=== PATIENT | male | born 1960 | race Caucasian/White ===

== ENCOUNTER → 2019-03-20 | Outpatient (REF) | payer MEDICARE, BC | LOC: M LAB REF 11:44 | PROVIDERS: ATTEND Internal Medicine Endocrinology, Diabetes & Metabolism | DX: E04.2 Nontoxic multinodular goiter (principal) ==

== ENCOUNTER → 2019-08-07 | Outpatient (REF) | payer MEDICARE, BC ==
[2019-08-07 14:03] LABS: APPEARANCE, URINE CLEAR (CLEAR); BACTERIA, URINE AUTO NEGATIVE (NEGATIVE); BILIRUBIN, URINE AUTO NEGATIVE (NEGATIVE); BLOOD, URINE BLOOD NEGATIVE (NEGATIVE); COLOR, URINE STRAW (YELLOW); GLUCOSE, URINE (UA) AUTO NEGATIVE (NEGATIVE); KETONE, URINE AUTO NEGATIVE (NEGATIVE); LEUKOCYTE ESTERASE, URINE AUTO NEGATIVE (NEGATIVE); NITRITE, URINE AUTO NEGATIVE (NEGATIVE); PROTEIN, URINE AUTO NEGATIVE (NEGATIVE); RBC, URINE AUTO 0 /HPF (0-3); SPECIFIC GRAVITY URINE AUTO 1.004 (1.002-1.035); SQUAMOUS EPITHELIAL CELL UR AU 0 /HPF (0-6); UROBILINOGEN, URINE AUTO 0.2 mg/dL (0.0-2.0); WBC, URINE AUTO 0 /HPF (0-3)
== END ==
LOC: M SMT 13:24
PROVIDERS: ATTEND Urology
DX: N41.1 Chronic prostatitis (principal)
CPT/HCPCS: 81001; 87086; G0463

== ENCOUNTER → 2019-08-26 | Outpatient (CLI) | payer MEDICARE, BC ==
[~2019-08-26] MED LIST: ISOVUE-370 76% 100ML VIAL (Q9967) As Ordered ONE
[2019-08-26 13:21] LABS: HEMATOCRIT 44.9 % (42.0-52.0); MEAN CORPUSCULAR HEMOGLOBIN 30.2 pg (27.0-33.0); MEAN CORPUSCULAR HGB CONC 33.4 g/dl (32.0-36.5); MEAN CORPUSCULAR VOLUME 90.3 fl (80.0-96.0); PLATELET COUNT, AUTOMATED 214 10^3/uL (150-450); RED BLOOD COUNT 4.97 10^6/uL (4.30-6.10); WHITE BLOOD COUNT 7.3 10^3/uL (4.0-10.0)
[2019-08-26 13:47] LABS: BLOOD UREA NITROGEN 19 MG/DL (7-18); CALCIUM LEVEL 9.4 MG/DL (8.8-10.2); CARBON DIOXIDE LEVEL 31 MEQ/L (21-32); CHLORIDE LEVEL 106 MEQ/L (98-107); CREATININE FOR GFR 1.07 MG/DL (0.70-1.30); GLOMERULAR FILTRATION RATE > 60.0 (>49); GLUCOSE, FASTING 88 MG/DL (70-100); POTASSIUM SERUM 4.3 MEQ/L (3.5-5.1); SODIUM LEVEL 140 MEQ/L (136-145)
--- NOTE | 2019-08-26 15:43 | REP ---
REASON: Chronic prostatitis. COMPARISON: None. CONTRAST: 100 mL Isovue 370. The lung bases are clear. The precontrast enhanced portion of the examination shows 4 mm sized nonobstructing right nephroliths. Hepatic and splenic densities are within normal limits. There are no choleliths. There are no urinary bladder calcifications. Contrast enhanced portion of the examination shows the liver, gallbladder, spleen, pancreas, adrenal glands, and left kidney to be within normal limits. Aside from the tiny right nephroliths there are two nonenhancing low density foci in the superior pole of the right kidney the largest of which measures 1.2 cm and both consistent with simple cysts. The abdominal aorta and paraaortic regions are within normal limits. The bowel loops and the mesenteries are within normal limits. There is no free fluid or free air. CT PELVIS: The bowel loops and their mesenteries are within normal limits. There is prostatomegaly. There is on pelvic adenopathy. There is no free fluid or free air. Delayed imaging through the urinary bladder shows prostatic impression on the posterior urinary bladder wall due to enlargement. There are no intraluminal filling defects. MIP reformatted 3D images were obtained as part of a CT urogram. Those images show no evidence of an intraluminal filling defect, however, the distal portion of each ureter was incompletely opacified likely secondary to normal ureteral peristaltic activity. IMPRESSION: 1. Simple right renal cyst. 2. No renal collection system abnormality. 3. There is prostatomegaly as described above. 4. Other findings as described above. Electronically Signed by Johny Rebolledo DO 08/26/2019 03:46 P
[2019-08-28 00:09] LABS: PSA % FREE 19.4 % (.); PSA FREE 1.3 ng/mL; PSA TOTAL 6.7 ng/mL (0.0-4.0)
== END ==
LOC: M RAD 12:46
PROVIDERS: ATTEND Urology
DX: N41.1 Chronic prostatitis (principal); R31.0 Gross hematuria; N35.911 Unspecified urethral stricture, male, meatal; N40.2 Nodular prostate without lower urinary tract symptoms; N20.0 Calculus of kidney; R97.20 Elevated prostate specific antigen [PSA]
CPT/HCPCS: 36415; 74178; 80048; 84154; 85027; Q9967

== ENCOUNTER → 2019-09-02 | Outpatient (CLI) | payer MEDICARE, BC ==
[~2019-09-02] MED LIST changes: +ATOR1TAB21 PO; +CIPR500T3 PO; +FLOM0.4C39 PO; -ISOVUE-370 76% 100ML VIAL (Q9967) As Ordered ONE; +LEVO25TA5 PO
[2019-09-02 15:05] LABS: HEMATOCRIT 42.5 % (42.0-52.0); HEMOGLOBIN 14.1 g/dl (13.5-17.5); MEAN CORPUSCULAR HEMOGLOBIN 29.9 pg (27.0-33.0); MEAN CORPUSCULAR HGB CONC 33.2 g/dl (32.0-36.5); PLATELET COUNT, AUTOMATED 192 10^3/uL (150-450); RED BLOOD COUNT 4.72 10^6/uL (4.30-6.10)
[2019-09-02 15:25] LABS: BLOOD UREA NITROGEN 19 MG/DL (7-18); CALCIUM LEVEL 9.1 MG/DL (8.8-10.2); CARBON DIOXIDE LEVEL 28 MEQ/L (21-32); CHLORIDE LEVEL 106 MEQ/L (98-107); CREATININE FOR GFR 1.21 MG/DL (0.70-1.30); GLOMERULAR FILTRATION RATE > 60.0 (>49); GLUCOSE, FASTING 84 MG/DL (70-100); POTASSIUM SERUM 3.9 MEQ/L (3.5-5.1); SODIUM LEVEL 140 MEQ/L (136-145)
== END ==
LOC: M LAB 14:25
PROVIDERS: ATTEND Urology
DX: Z01.818 Encounter for other preprocedural examination (principal); R31.0 Gross hematuria; R97.20 Elevated prostate specific antigen [PSA]
CPT/HCPCS: 36415; 51798; 80048; 85027; 87086; G0463

== ENCOUNTER → 2019-09-02 | Outpatient (REF) | payer MEDICARE, BC | LOC: M SMT 17:15 | PROVIDERS: ATTEND Urology | DX: Z01.818 Encounter for other preprocedural examination (principal); R31.0 Gross hematuria; R97.20 Elevated prostate specific antigen [PSA] ==

== ENCOUNTER → 2019-09-09 | Outpatient (CLI) | payer MEDICARE, BC ==
[~2019-09-09] MED LIST changes: -CIPR500T3 PO
--- NOTE | 2019-09-09 13:09 | REP ---
REASON: Gross hematuria. COMPARISON EXAMINATION: None. There is left hilar fullness compared to the right with slight irregularity. The pleural angles are sharp, and the lung valdes are otherwise clear. The heart is not enlarged. There is a left shoulder prosthesis. IMPRESSION: Left hilar findings, as described above. Etiology uncertain. Possible superimposition of vascular structures; however, since I have no priors for comparison, CT examination of the chest with contrast is in order. Electronically Signed by Johny Rebolledo DO 09/09/2019 01:26 P
== END ==
LOC: M RAD 12:10
PROVIDERS: ATTEND Urology
DX: R31.0 Gross hematuria (principal)

== ENCOUNTER 2019-09-12 06:28 | Day surgery (SDC) | payer MEDICARE, BC ==
[~2019-09-12] VITALS: Ht 182.9 cm; Wt 123.8 kg
[~2019-09-12 06:28] MED LIST changes: +LIDOCAINE 1% MDV 20ML VIAL SQ PRN
[2019-09-12] MEDS ORDERED: LR 1,000 ML IV ONE (06:30)
[2019-09-12] MEDS ORDERED: CIPR500T3 PO (07:33)
[2019-09-12] MEDS ORDERED: fentaNYL 250 MCG/5 ML INJECTION (J3010) As Ordered ONE (08:38)
[2019-09-12] MEDS ORDERED: MIDAZOLAM INJ 2MG/2ML VIAL (J2250 PER 1MG) As Ordered ONE (08:39)
[2019-09-12] MEDS ORDERED: ONDANSETRON 4MG/2ML VIAL As Ordered ONE (08:39)
[2019-09-12] MEDS ORDERED: propofoL 200 MG/20 ML VIAL As Ordered ONE (08:39)
[2019-09-12] MEDS ORDERED: LIDOCAINE 2% 100MG/5ML SDV (FOR ANES.) As Ordered ONE (08:39)
[2019-09-12] MEDS ORDERED: dexameTHASONE 4 MG/ML 1ML VIAL (J1100 PER 1MG) As Ordered ONE (08:39)
[2019-09-12] MEDS ORDERED: ePHEDrine SULFATE 25 MG/5 ML(5MG/ML) SYRINGE As Ordered ONE (09:32)
[2019-09-12] MEDS ORDERED: fentaNYL 100 MCG/2 ML INJECTION (J3010) IV PRN (10:15)
[2019-09-12] MEDS ORDERED: PERCOCET 5MG/325MG TAB PO PRN (10:15)
[2019-09-12] MEDS ORDERED: ONDANSETRON 4MG/2ML VIAL IV PRN (10:15)
[2019-09-12] MEDS ORDERED: ACETAMINOPHEN TAB 650MG DOSE (2X325MG) PO PRN (10:15)
[2019-09-12] MEDS ORDERED: LR 1,000 ML IV SCH (10:15)
[2019-09-12] MEDS ORDERED: METOCLOPRAMIDE INJ 10MG/2ML VIAL (J2765 PER 1) IV PRN (10:15)
--- NOTE | 2019-09-12 10:25 | ROOPDOC ---
[facility] Report Of Operation Report of Operation DATE OF PROCEDURE: 09/12/19 PREPROCEDURE DIAGNOSES: Meatal Stenosis, Gross Hematuria, Elevated Prostate Specific Antigen (PSA), Prostate Nodule. POSTPROCEDURE DIAGNOSES: Meatal Stenosis, Gross Hematuria, Elevated PSA, Prostate Nodule. PROCEDURE: Urethral Meatal Dilation, Cystoscopy, Transrectal Ultrasound-guided Prostate Biopsy. SURGEON: Monet Alcantara MD DRYING OVEN ATTENDANT: None ANESTHESIA: General. OPERATIVE INDICATIONS: This is a 59 year old male with gross hematuria, meatal stenosis, a right prostate nodule, and an elevated PSA of 6.7, here today for t he above procedures. DESCRIPTION OF PROCEDURE: The patient was brought to the operating room and general anesthesia was induced. Prophylactic antibiotics were taken prior to the procedure. He was then placed in the dorsal lithotomy position and prepped and draped in the usual sterile fashion. At this point curved metal sounds were utilized to dilate the urethral meatus to 30 Cymro. Once this was done, a rigid cystoscope was inserted into the urethra and advanced into the bladder. It was thoroughly examined with a 30 degree and 70 degree lens. No bladder tumors or other mucosal lesions were seen. Bilateral ureteral orifices were orthotopic and effluxed clear urine. There were no bladder stones. There was trilobar prostatic hyperplasia with significant occlusion of the bladder outlet. The remainder of the urethra was unremarkable. The patient was then repositioned with his left side down. Subsequently the central supply technician supervisor measured the dimensions of the prostate and the volume was 99mL. Then 12 core biopsies of the prostate were obtained using a disposable biopsy gun, 6 each from the right and 6 from the left, 2 from the base, 2 from the mid zone and 2 from the apex. Once this was done the patient was placed back supine. He was prepped again and then an 18 Cymro Jj catheter was inserted into his bladder using sterile technique. The balloon was inflated with 10mL of sterile water and the catheter was connected to gravity drainage, marking the conclusion of the procedure. The patient was then awakened from anesthesia and transported to the recovery room in stable condition. ESTIMATED BLOOD LOSS: Approximately 15 mL. COMPLICATIONS: None. SPECIMENS: Prostate Biopsies. PLAN: The patient will follow up in urology clinic next week for catheter removal and to discuss prostate biopsy pathology results. MONET ALCANTARA MD Sep 12, 2019 10:25
[2019-09-12 11:40] VITALS: BP 128/75
--- NOTE | 2019-09-12 12:33 | REP ---
TRANSRECTAL PROSTATE ULTRASOUND WITH ULTRASOUND GUIDANCE FOR PROSTATE BIOPSY: Transrectal ultrasound prostate performed. Prostate measures 6.0 x 3.8 x 6.7 cm for a total volume of 99 mL. No peripheral zone nodule is seen. Echotexture is heterogeneous. Ultrasound guidance was provided for Dr. Menon, who performed ultrasound guided biopsy of the prostate. Electronically Signed by Bill Packer MD 09/12/2019 03:07 P
== END 2019-09-12 11:49 | disposition home or self-care (01) ==
LOC: M SDC 06:28
PROVIDERS: ATTEND Urology
DX: C61 Malignant neoplasm of prostate (principal); N35.911 Unspecified urethral stricture, male, meatal; R97.20 Elevated prostate specific antigen [PSA]; R31.0 Gross hematuria; N40.3 Nodular prostate with lower urinary tract symptoms; N41.1 Chronic prostatitis; R73.03 Prediabetes; E78.01 Familial hypercholesterolemia; E66.9 Obesity, unspecified; Z68.37 Body mass index [BMI] 37.0-37.9, adult; G47.30 Sleep apnea, unspecified; E89.0 Postprocedural hypothyroidism; Z79.899 Other long term (current) drug therapy; Z79.2 Long term (current) use of antibiotics; Z88.0 Allergy status to penicillin
CPT/HCPCS: 52281; 55700; 76872; G0416; J1100; J2250; J2405; J3010

== ENCOUNTER → 2019-09-24 | Outpatient (CLI) | payer MEDICARE, BC ==
[~2019-09-24] MED LIST changes: +CIPR500T3 PO; +ISOVUE-370 76% 100ML VIAL As Ordered ONE; -LIDOCAINE 1% MDV 20ML VIAL SQ PRN
--- NOTE | 2019-09-24 11:12 | REP ---
CT CHEST WITH IV CONTRAST: TECHNIQUE: Axial contrast enhanced images from the thoracic inlet to the upper abdomen using 100 mL Isovue-370 intravenous contrast material with multiplanar reformations. There is mild scattered fibrotic change in both lungs. There is a somewhat oval nodular density in the right middle lobe laterally 6 mm in maximum diameter. A few tiny nodular areas of suspected scarring are seen in the right upper lobe, a couple of millimeters in diameter. No nodule is seen in the left lung. There is no evidence of mediastinal, hilar or chest wall lymphadenopathy. There is no pleural or pericardial effusion. The heart is normal in size. There is no thoracic aortic aneurysm or dissection. There is evidence of prior left thyroidectomy. There are degenerative changes of the spine. IMPRESSION: Oval 6 mm nodular opacity right middle lobe laterally. Since there are no prior studies for comparison, this is categorized as a category 4A lesion with followup CT recommended in 3 months. No evidence of adenopathy. Electronically Signed by Bill Packer MD 09/24/2019 12:34 P
== END ==
LOC: M RAD 09:24
PROVIDERS: ATTEND Urology
DX: R91.8 Other nonspecific abnormal finding of lung field (principal); R93.89 Abnormal findings on diagnostic imaging of other specified body structures
CPT/HCPCS: 71260; Q9967

== ENCOUNTER → 2019-09-29 | Outpatient (CLI) | payer MEDICARE, BC ==
[~2019-09-29] MED LIST changes: -ISOVUE-370 76% 100ML VIAL As Ordered ONE
== END ==
LOC: M LAB 12:27
PROVIDERS: ATTEND Registered Nurse
DX: E89.0 Postprocedural hypothyroidism (principal)

== ENCOUNTER → 2019-09-29 | Outpatient (CLI) | payer MEDICARE, BC ==
[2019-09-29 13:03] LABS: HEMOGLOBIN 15.6 g/dl (13.5-17.5); MEAN CORPUSCULAR HEMOGLOBIN 30.9 pg (27.0-33.0); MEAN CORPUSCULAR HGB CONC 33.9 g/dl (32.0-36.5); MEAN CORPUSCULAR VOLUME 91.1 fl (80.0-96.0); PLATELET COUNT, AUTOMATED 217 10^3/uL (150-450); RED BLOOD COUNT 5.05 10^6/uL (4.30-6.10); WHITE BLOOD COUNT 9.5 10^3/uL (4.0-10.0)
[2019-09-29 13:25] LABS: BLOOD UREA NITROGEN 19 MG/DL (7-18); CALCIUM LEVEL 9.7 MG/DL (8.8-10.2); CARBON DIOXIDE LEVEL 29 MEQ/L (21-32); CHLORIDE LEVEL 104 MEQ/L (98-107); CREATININE FOR GFR 1.15 MG/DL (0.70-1.30); GLOMERULAR FILTRATION RATE > 60.0 (>49); GLUCOSE, FASTING 91 MG/DL (70-100); POTASSIUM SERUM 4.1 MEQ/L (3.5-5.1); SODIUM LEVEL 139 MEQ/L (136-145)
[2019-09-29 13:27] LABS: INR 1.05; PROTHROMBIN TIME 13.4 SECONDS (11.8-14.0)
[2019-09-29 13:28] LABS: PARTIAL THROMBOPLASTIN TIME 29.1 SECONDS (25.0-38.4)
== END ==
LOC: M LAB 12:23
PROVIDERS: ATTEND Urology
DX: Z01.818 Encounter for other preprocedural examination (principal); C61 Malignant neoplasm of prostate; N39.0 Urinary tract infection, site not specified; E89.0 Postprocedural hypothyroidism

== ENCOUNTER → 2019-10-06 | Outpatient (CLI) | payer MEDICARE, BC ==
[~2019-10-06] MED LIST changes: +DOCU100C16 PO; +ERYT-52 PO; +MULTCAP PO; +PERCOCET PO
== END ==
LOC: M LABSMTC 09:24
PROVIDERS: ATTEND Anesthesiology
DX: Z01.818 Encounter for other preprocedural examination (principal); Z11.59 Encounter for screening for other viral diseases

== ENCOUNTER 2019-10-08 06:02 | Inpatient (IN) | payer MEDICARE, BC ==
[2019-10-08] VITALS (8 sets, daily range): BP systolic 120–133; BP diastolic 70–75
[~2019-10-08] VITALS: Ht 185.4 cm; Wt 120.7 kg
[~2019-10-08 06:02] MED LIST changes: -DOCU100C16 PO; -ERYT-52 PO; +GENTAMICIN 80 MG in IV 1 EA IV ONE; +HEPARIN SOD (PORCINE) 5000UNITS/ML VIAL (J1644 PER 1000UNITS) SQ ONE; +LR 1,000 ML IV ONE; -MULTCAP PO; -PERCOCET PO; +VANCOMYCIN HCL 1,000 MG, VIAL MATE ADAPTER 1 EACH in D5W 250 ML IV ONE
[2019-10-08] MEDS ORDERED: MULTCAP PO (06:44)
[2019-10-08] MEDS ORDERED: ERYT-52 PO (06:44)
[2019-10-08] MEDS ORDERED: dexameTHASONE 4 MG/ML 1ML VIAL (J1100 PER 1MG) As Ordered ONE (07:00)
[2019-10-08] MEDS ORDERED: fentaNYL 100 MCG/2 ML INJECTION (J3010) As Ordered ONE (07:00)
[2019-10-08] MEDS ORDERED: ONDANSETRON 4MG/2ML VIAL As Ordered ONE (07:00)
[2019-10-08] MEDS ORDERED: KETAMINE HCL 200 MG/20 ML VIAL As Ordered ONE (07:00)
[2019-10-08] MEDS ORDERED: MIDAZOLAM INJ 2MG/2ML VIAL (J2250 PER 1MG) As Ordered ONE (07:00)
[2019-10-08] MEDS ORDERED: LIDOCAINE 2% 100MG/5ML SDV (FOR ANES.) As Ordered ONE (07:01)
[2019-10-08] MEDS ORDERED: ROCURONIUM BROMIDE 50 MG/5 ML VIAL As Ordered ONE ×3 (07:01→10:16)
[2019-10-08] MEDS ORDERED: propofoL 200 MG/20 ML VIAL As Ordered ONE (07:01)
[2019-10-08] MEDS ORDERED: BUPIVACAINE HCL 0.25% 30ML VIAL As Ordered ONE (07:13)
[2019-10-08] MEDS ORDERED: LIDOCAINE 1% SDV 30ML VIAL As Ordered ONE (07:13)
[2019-10-08] MEDS ORDERED: NS 1,000 ML IV SCH (07:39)
[2019-10-08] MEDS ORDERED: MORPHINE 2 MG/ML 1ML VIAL (J2270) IV PRN (07:45)
[2019-10-08] MEDS ORDERED: PERCOCET 5MG/325MG TAB PO PRN ×3 (07:45→13:45)
[2019-10-08] MEDS ORDERED: SUGAMMADEX SODIUM 500 MG/5 ML VIAL (BRIDION) As Ordered ONE (08:06)
[2019-10-08] MEDS ORDERED: ACETAMINOPHEN 1000MG 100ML IV BTL (OFIRMEV) (J0131 PER 10MG) As Ordered ONE (08:06)
[2019-10-08] MEDS ORDERED: HYDROmorphone HCL 2 MG/ML 1ML VIAL (J1170) As Ordered ONE (08:23)
[2019-10-08] MEDS ORDERED: ATORVASTATIN 20 MG TAB PO SCH (09:00)
[2019-10-08] MEDS ORDERED: ePHEDrine SULFATE 25 MG/5 ML(5MG/ML) SYRINGE As Ordered ONE (09:01)
[2019-10-08] MEDS ORDERED: ALBUTEROL 6.7GM INHALER **FOR ANES. CART/OMNICELL ONLY As Ordered ONE (10:40)
[2019-10-08] MEDS ORDERED: DESFLURANE 240 ML INHALANT As Ordered ONE ×2 (10:40→11:09)
[2019-10-08 13:33] LABS: HEMATOCRIT 43.7 % (42.0-52.0); HEMOGLOBIN 15.5 g/dl (13.5-17.5); MEAN CORPUSCULAR HEMOGLOBIN 31.7 pg (27.0-33.0); MEAN CORPUSCULAR HGB CONC 35.5 g/dl (32.0-36.5); MEAN CORPUSCULAR VOLUME 89.4 fl (80.0-96.0); PLATELET COUNT, AUTOMATED 241 10^3/uL (150-450); RED BLOOD COUNT 4.89 10^6/uL (4.30-6.10); WHITE BLOOD COUNT 13.5 10^3/uL (4.0-10.0)
[2019-10-08] MEDS ORDERED: METOCLOPRAMIDE INJ 10MG/2ML VIAL (J2765 PER 1) IV PRN (13:45)
[2019-10-08] MEDS ORDERED: LR 1,000 ML IV SCH (13:45)
[2019-10-08] MEDS ORDERED: fentaNYL 100 MCG/2 ML INJECTION (J3010) IV PRN (13:45)
[2019-10-08] MEDS ORDERED: ONDANSETRON 4MG/2ML VIAL IV PRN (13:45)
--- NOTE | 2019-10-08 13:55 | ROOPDOC ---
[facility] Report Of Operation Report of Operation DATE OF PROCEDURE: 10/08/19 PREPROCEDURE DIAGNOSES: Prostate Cancer. POSTPROCEDURE DIAGNOSES: Prostate Cancer. PROCEDURE: Robotic-assisted Laparoscopic Radical Prostatectomy with Anterior Bladder Neck Reconstruction. SURGEON: Monet Alcantara MD AIRPORT ENGINEER: Vaishali Thomas NP ANESTHESIA: General. OPERATIVE INDICATIONS: This is a 59 year old male with clinical T1c Toribio 3+3 prostate cancer, here today for treatment. DESCRIPTION OF PROCEDURE: The patient was brought to the operating room and general anesthesia was induced. Prophylactic antibiotics were infused. He was then placed in the supine position and prepped and draped in the usual sterile fashion. At this point, a Jj catheter was inserted into the bladder and the balloon was filled with 10 mL of sterile water. We then made a midline incision just above the umbilicus for an 8 mm port. A Veress needle was utilized to achieve pneumoperitoneum. Next, an 8 mm port was inserted into the incision and subsequently a camera was inserted. There were no injuries from the Veress needle or initial trocar placement. Then three robotic ports were placed in the usual configuration in line just below the level of the umbilicus. A 12 mm surgeon's assistant port was inserted lateral to the camera port. The robot was then docked. Lysis of adhesions between the sigmoid colon and abdominal wall was then performed. The bladder was then released from the anterior abdominal wall using electrocautery. Once the bladder was dropped, the fat overlying the prostate was cleared using electrocautery. The superficial dorsal vein was controlled with electrocautery. The endopelvic fascia was opened on both sides and the dorsal venous complex was cleared. Next, a #0 Vicryl [id number] stitch was placed around the dorsal venous complex. Once that was done, the bladder was opened and dissected away from the prostate. At this point, the prostate was lifted up. The vasa deferentia were identified in the midline. They were controlled with electrocautery and then transected. The seminal vesicles were also dissected bilaterally. I then ligated and transected bilateral prostatic pedicles using the Harmonic scalpel. The pedicles were carried towards the apex. After taking care of the pedicles the dorsal venous complex was transected with electrocautery. The urethra was transected. The prostate was then mobilized off the rectum using cold scissors. At this point, we checked for hemostasis and it appeared very good. Once hemostasis was confirmed, I then moved on to perform the vesicourethral anastomosis. The vesicourethral anastomosis was performed in running fashion using a Quill stitch. The bladder neck was much wider than normal as the patient had a very large prostate that was protruding into the bladder. Because of this an anterior bladder neck reconstruction was done to cinch the anterior bladder neck down to the urethra. Once this was done, the final #20-Bulgarian Jj catheter was placed. The balloon was filled with 15 mL of sterile water. Upon completion of the vesicourethral anastomosis, it was tested by filling the b ladder with saline. The anastomosis appeared to be watertight. At this point, the prostate and seminal vesicles were placed in an Endo Catch bag for future retrieval. A Damon-Saez drain was brought in through the left robotic port skin site and the drain was positioned anterior to the bladder. The robot was then undocked. A Anna Marie fascial closure device was utilized to place a #0 Vicryl suture through the fascia of the 12 mm surgeon's assistant port. The drain was secured to the skin with #2-0 Ethilon suture. The prostate was then extracted from the camera port site after the skin was extended. The fascia in this incision was then closed with a running #0 Vicryl stitch. Next, all the remaining ports were removed and there did not appear to be any bleeding from any of the port sites. The previously placed #0 Vicryl free ties through the surgeon's assistant port were then tied down and all incisions were irrigated. Last, all of the incisions were closed with running subcuticular #4-0 Monocryl sutures. Local anesthesia was applied. Dermabond was then applied to the incisions. This marked the conclusion of the procedure. The patient was then awakened from anesthesia and transported to the recovery room in stable condition. ESTIMATED BLOOD LOSS: 450 mL. COMPLICATIONS: None. SPECIMENS: Prostate and seminal vesicles. PLAN: The patient will be admitted to the hospital postoperatively, and he will likely be discharged home within the next 1-2 days. MONET ALCANTARA MD October 08, 2019 13:55
[2019-10-08 14:04] LABS: BLOOD UREA NITROGEN 20 MG/DL (7-18); CALCIUM LEVEL 8.9 MG/DL (8.8-10.2); CARBON DIOXIDE LEVEL 25 MEQ/L (21-32); CHLORIDE LEVEL 105 MEQ/L (98-107); CREATININE FOR GFR 1.17 MG/DL (0.70-1.30); GLOMERULAR FILTRATION RATE > 60.0 (>49); GLUCOSE, FASTING 175 MG/DL (70-100); POTASSIUM SERUM 4.1 MEQ/L (3.5-5.1); SODIUM LEVEL 138 MEQ/L (136-145)
[2019-10-08] MEDS: DOCUSATE SODIUM 100 MG CAP PO SCH ×2 (15:01→20:22)
[2019-10-08] MEDS: HEPARIN SOD (PORCINE) 5000UNITS/ML VIAL (J1644 PER 1000UNITS) SC SCH ×2 (15:02→21:24)
[2019-10-08] MEDS: GENTAMICIN 80 MG in IV 1 EA IV SCH (17:28)
[2019-10-08] MEDS ORDERED: VANCOMYCIN HCL 1,000 MG, VIAL MATE ADAPTER 1 EACH in D5W 250 ML IV SCH (20:00)
[2019-10-08] MEDS: ACETAMINOPHEN TAB 650MG DOSE (2X325MG) PO PRN (21:23)
[2019-10-09] MEDS: GENTAMICIN 80 MG in IV 1 EA IV SCH (00:11)
[2019-10-09 02:00] VITALS: BP 129/73
[2019-10-09] MEDS: HEPARIN SOD (PORCINE) 5000UNITS/ML VIAL (J1644 PER 1000UNITS) SC SCH ×3 (05:42→21:09)
[2019-10-09] MEDS: LEVOTHYROXINE 100MCG TABLET (0.1MG) PO SCH (05:42)
[2019-10-09 06:00] VITALS: BP 129/73
[2019-10-09 06:15] LABS: HEMATOCRIT 38.9 % (42.0-52.0); HEMOGLOBIN 13.6 g/dl (13.5-17.5); MEAN CORPUSCULAR VOLUME 88.6 fl (80.0-96.0); PLATELET COUNT, AUTOMATED 215 10^3/uL (150-450); RED BLOOD COUNT 4.39 10^6/uL (4.30-6.10); WHITE BLOOD COUNT 14.2 10^3/uL (4.0-10.0)
[2019-10-09 06:40] LABS: BLOOD UREA NITROGEN 15 MG/DL (7-18); CALCIUM LEVEL 8.5 MG/DL (8.8-10.2); CARBON DIOXIDE LEVEL 25 MEQ/L (21-32); CHLORIDE LEVEL 105 MEQ/L (98-107); CREATININE FOR GFR 1.06 MG/DL (0.70-1.30); GLOMERULAR FILTRATION RATE > 60.0 (>49); GLUCOSE, FASTING 124 MG/DL (70-100); POTASSIUM SERUM 4.5 MEQ/L (3.5-5.1); SODIUM LEVEL 138 MEQ/L (136-145)
[2019-10-09] MEDS: ACETAMINOPHEN TAB 650MG DOSE (2X325MG) PO PRN ×2 (07:59→13:49)
[2019-10-09] MEDS: DOCUSATE SODIUM 100 MG CAP PO SCH ×2 (07:59→21:08)
--- NOTE | 2019-10-09 09:10 | IPNPDOC ---
Subjective Review oF Systems Chief Complaint The patient is a 59-year-old male admitted with a reason for visit of Prostate Cancer. Events since Last Encounter No acute events o/n. Good pain control. Had some nausea immediately postop, but none sense then. No flatus yet. No f/c/ns. Objective Physical Examination General Exam: Alert, Cooperative, No Acute Distress ABDOMEN EXAM: Soft, Tenderness (minimal), Other (incisions clean/dry/intact; KAREN w/ serosanguinous output) Skin Exam: Nl turgor and temperature Neuro Exam: Normal Speech Psych Exam: Mental status NL, Mood NL Other physical findings catheter draining clear yellow urine Vital Signs/I&O Vital Signs Date Time Temp Pulse Resp B/P (MAP) Pulse Ox O2 Delivery O2 Flow Rate FiO2 10/09/19 06:00 98.9 77 12 129/73 (91) 96 Room Air 10/08/19 19:00 0.5 l I&O- Last 24 Hours up to 6 AM 10/09/19 06:00 Intake Total 5310 ml Output Total 2982 ml Balance 2328 ml Laboratory Data Labs 24H Laboratory Tests 2 10/08/19 13:18: Nucleated Red Blood Cells % (auto) 0.0, Anion Gap 8, Glomerular Filtration Rate > 60.0, Calcium Level 8.9 10/09/19 06:00: Nucleated Red Blood Cells % (auto) 0.0, Anion Gap 8, Glomerular Filtration Rate > 60.0, Calcium Level 8.5L CBC/BMP Laboratory Tests 10/08/19 13:18 10/09/19 06:00 Assessment/Plan Date Seen The patient was seen on 10/09/19. Patient Summary This is a 59 y/o M POD1 s/p RALP. Labs w/i normal limits. Good UOP. Minimal KAREN output. Plan/VTE VTE Prophylaxis Ordered?: Yes VTE Exclusion Mechanical Proph: N/A:VTE Prophy Ordered VTE Exclusion Pharmacological: N/A:VTE Prophy Ordered Plan/Urinary Catheter Urinary Catheter: Other Catheter: (catheter will need to stay in for at least 7 days for healing of the vesicourethral anastomosis) Plan - d/c IVF - percocet prn pain - strict I/Os - ambulate - SCDs when in bed - SQH - incentive spirometry - advance diet as tolerated - likely discharge home later today w/ catheter (will remove KAREN prior to discharge if output remains low) MONET ALCANTARA MD October 09, 2019 09:10
[2019-10-09] MEDS: ERYTHROMYCIN 250 MG TABLET PO SCH ×3 (09:24→18:54)
[2019-10-09 10:00] VITALS: BP 116/70
[2019-10-09 14:00] VITALS: BP 143/56
[2019-10-09] MEDS ORDERED: DOCU100C16 PO (16:10)
[2019-10-09] MEDS ORDERED: PERCOCET PO (16:10)
[2019-10-09 18:00] VITALS: BP 141/84
[2019-10-09] MEDS: ONDANSETRON 4MG/2ML VIAL IV PRN (21:08)
[2019-10-09 22:00] VITALS: BP 138/56
[2019-10-10] MEDS ORDERED: METOCLOPRAMIDE INJ 10MG/2ML VIAL (J2765 PER 1) IV PRN (00:45)
[2019-10-10] MEDS: ERYTHROMYCIN 250 MG TABLET PO SCH ×4 (01:27→17:58)
[2019-10-10 02:00] VITALS: BP 144/86
[2019-10-10 06:00] VITALS: BP 147/87
[2019-10-10] MEDS: LEVOTHYROXINE 100MCG TABLET (0.1MG) PO SCH (06:11)
[2019-10-10] MEDS: HEPARIN SOD (PORCINE) 5000UNITS/ML VIAL (J1644 PER 1000UNITS) SC SCH ×3 (06:11→21:07)
[2019-10-10] MEDS: ONDANSETRON 4MG/2ML VIAL IV PRN (06:11)
[2019-10-10 06:13] LABS: HEMATOCRIT 41.5 % (42.0-52.0); HEMOGLOBIN 14.3 g/dl (13.5-17.5); MEAN CORPUSCULAR HEMOGLOBIN 31.2 pg (27.0-33.0); MEAN CORPUSCULAR HGB CONC 34.5 g/dl (32.0-36.5); MEAN CORPUSCULAR VOLUME 90.4 fl (80.0-96.0); PLATELET COUNT, AUTOMATED 227 10^3/uL (150-450); RED BLOOD COUNT 4.59 10^6/uL (4.30-6.10); WHITE BLOOD COUNT 15.1 10^3/uL (4.0-10.0)
[2019-10-10 06:32] LABS: BLOOD UREA NITROGEN 21 MG/DL (7-18); CALCIUM LEVEL 8.9 MG/DL (8.8-10.2); CARBON DIOXIDE LEVEL 27 MEQ/L (21-32); CHLORIDE LEVEL 106 MEQ/L (98-107); CREATININE FOR GFR 1.11 MG/DL (0.70-1.30); GLOMERULAR FILTRATION RATE > 60.0 (>49); GLUCOSE, FASTING 142 MG/DL (70-100); POTASSIUM SERUM 3.9 MEQ/L (3.5-5.1); SODIUM LEVEL 141 MEQ/L (136-145)
[2019-10-10] MEDS: METOCLOPRAMIDE INJ 10MG/2ML VIAL (J2765 PER 1) IV SCH ×4 (08:37→21:07)
[2019-10-10] MEDS: DOCUSATE SODIUM 100 MG CAP PO SCH ×2 (08:38→21:00)
[2019-10-10] MEDS: NS 1,000 ML IV SCH ×2 (08:38→17:58)
[2019-10-10] MEDS: ACETAMINOPHEN TAB 650MG DOSE (2X325MG) PO PRN (09:47)
--- NOTE | 2019-10-10 09:54 | IPNPDOC ---
Subjective Review oF Systems Chief Complaint The patient is a 59-year-old male admitted with a reason for visit of Prostate Cancer. Events since Last Encounter Patient had a return of nausea and emesis yesterday evening. He is still nauseous this morning and feels bloated. He is passing small amounts of flatus. He is ambulating. He denies fevers or chills. Objective Physical Examination General Exam: Alert, Cooperative, No Acute Distress ABDOMEN EXAM: Soft, Tenderness (minimal), Other (mildly distended; incisions clean/dry/intact; KAREN w/ serosanguinous output) Skin Exam: Nl turgor and temperature Neuro Exam: Normal Speech Psych Exam: Mental status NL, Mood NL Other physical findings catheter draining concentrated urine Vital Signs/I&O Vital Signs Date Time Temp Pulse Resp B/P (MAP) Pulse Ox O2 Delivery O2 Flow Rate FiO2 10/10/19 06:00 98.8 77 14 147/87 (107) 95 Room Air 10/09/19 14:00 0.5 I&O- Last 24 Hours up to 6 AM 10/10/19 06:00 Intake Total 1860 ml Output Total 3428 ml Balance -1568 ml Laboratory Data Labs 24H Laboratory Tests 2 10/10/19 05:57: Nucleated Red Blood Cells % (auto) 0.0, Anion Gap 8, Glomerular Filtration Rate > 60.0, Calcium Level 8.9 10/10/19 08:12: Bedside Glucose (Misc Panel) 133H CBC/BMP Laboratory Tests 10/10/19 05:57 FSBS Laboratory Tests Test 10/10/19 08:12 Range/Units Bedside Glucose (Misc Panel) 133 80-115 MG/DL Assessment/Plan Date Seen The patient was seen on 10/10/19. Patient Summary This is a 59 y/o M POD2 s/p RALP. UOP is good. Labs w/i normal limits. He appears to have a postop ileus. Plan/VTE VTE Prophylaxis Ordered?: Yes VTE Exclusion Mechanical Proph: N/A:VTE Prophy Ordered VTE Exclusion Pharmacological: N/A:VTE Prophy Ordered Plan/Urinary Catheter Urinary Catheter: Other Catheter: (catheter will need to stay in for at least 7 days for healing of the vesicourethral anastomosis) Plan - resume IVF - reglan scheduled - minimize narcotics - ambulate - SCDs when in bed - SQH - incentive spirometry - FLD - possible discharge later today if ileus resolves and patient tolerates PO MONET ALCANTARA MD October 10, 2019 09:54
[2019-10-10 10:00] VITALS: BP 143/87
[2019-10-10 14:00] VITALS: BP 143/87
[2019-10-10] MEDS ORDERED: MIRALAX *UNIT DOSE* 17GM PACKET PO SCH (16:30)
[2019-10-10 18:00] VITALS: BP 145/88
[2019-10-10 22:00] VITALS: BP 136/86
[2019-10-11] MEDS: ERYTHROMYCIN 250 MG TABLET PO SCH ×3 (00:38→12:30)
[2019-10-11 02:00] VITALS: BP 138/77
[2019-10-11] MEDS: ACETAMINOPHEN TAB 650MG DOSE (2X325MG) PO PRN ×2 (03:58→08:52)
[2019-10-11] MEDS: HEPARIN SOD (PORCINE) 5000UNITS/ML VIAL (J1644 PER 1000UNITS) SC SCH ×2 (05:47→14:00)
[2019-10-11] MEDS: LEVOTHYROXINE 100MCG TABLET (0.1MG) PO SCH (05:47)
[2019-10-11 06:00] VITALS: BP 136/78
[2019-10-11 06:14] LABS: HEMATOCRIT 41.1 % (42.0-52.0); MEAN CORPUSCULAR HGB CONC 34.1 g/dl (32.0-36.5); MEAN CORPUSCULAR VOLUME 91.1 fl (80.0-96.0); PLATELET COUNT, AUTOMATED 207 10^3/uL (150-450); RED BLOOD COUNT 4.51 10^6/uL (4.30-6.10); WHITE BLOOD COUNT 13.5 10^3/uL (4.0-10.0)
[2019-10-11 06:28] LABS: BLOOD UREA NITROGEN 26 MG/DL (7-18); CALCIUM LEVEL 8.3 MG/DL (8.8-10.2); CARBON DIOXIDE LEVEL 28 MEQ/L (21-32); CHLORIDE LEVEL 109 MEQ/L (98-107); CREATININE FOR GFR 0.95 MG/DL (0.70-1.30); GLOMERULAR FILTRATION RATE > 60.0 (>49); GLUCOSE, FASTING 108 MG/DL (70-100); POTASSIUM SERUM 3.7 MEQ/L (3.5-5.1); SODIUM LEVEL 144 MEQ/L (136-145)
[2019-10-11] MEDS: DOCUSATE SODIUM 100 MG CAP PO SCH (08:51)
[2019-10-11] MEDS: METOCLOPRAMIDE INJ 10MG/2ML VIAL (J2765 PER 1) IV SCH ×2 (08:51→12:30)
[2019-10-11 10:00] VITALS: BP 141/80
--- NOTE | 2019-10-11 11:38 | IPNPDOC ---
Subjective Review oF Systems Chief Complaint The patient is a 59-year-old male admitted with a reason for visit of Prostate Cancer. Events since Last Encounter No acute events o/n. Patient had a few bowel movements and passed more flatus after receiving miralax yesterday. He notes that he feels less bloated now and the nausea has resolved. No vomiting yesterday. Ambulating well. No f/c/ns. Objective Physical Examination General Exam: Alert, Cooperative, No Acute Distress ABDOMEN EXAM: Soft, Tenderness, Other (nondistended; incisions clean/dry/intact; KAREN drain w/ serosanguinous output) Skin Exam: Nl turgor and temperature Neuro Exam: Normal Speech Psych Exam: Mental status NL, Mood NL Other physical findings catheter draining pink urine Vital Signs/I&O Vital Signs Date Time Temp Pulse Resp B/P (MAP) Pulse Ox O2 Delivery O2 Flow Rate FiO2 10/11/19 10:31 18 10/11/19 10:00 98.4 71 141/80 (100) 94 Room Air 10/09/19 14:00 0.5 I&O- Last 24 Hours up to 6 AM 10/11/19 06:00 Intake Total 1400 ml Output Total 1115 ml Balance 285 ml Laboratory Data Labs 24H Laboratory Tests 2 10/11/19 05:46: Nucleated Red Blood Cells % (auto) 0.0, Anion Gap 7L, Glomerular Filtration Rate > 60.0, Calcium Level 8.3L CBC/BMP Laboratory Tests 10/11/19 05:46 Assessment/Plan Date Seen The patient was seen on 10/11/19. Patient Summary This is a 59 y/o M POD3 s/p RALP. His ileus appears to be improving. His nausea has pretty much resolved. Labs w/i normal limits. Good UOP. KAREN w/ increased output o/n but minimal since this morning. He is having some leakage around the drain. Plan/VTE VTE Prophylaxis Ordered?: Yes VTE Exclusion Mechanical Proph: N/A:VTE Prophy Ordered VTE Exclusion Pharmacological: N/A:VTE Prophy Ordered Plan/Urinary Catheter Urinary Catheter: Other Catheter: (catheter will need to stay in for at least 7 days for healing of the vesicourethral anastomosis) Plan - d/c IVF - send KAREN fluid for Cr - percocet prn pain - reglan - ambulate - SCDs when in bed - SQH - incentive spirometry - will d/c KAREN drain if Cr is consistent w/ serum - likely discharge home this afternoon w/ catheter if patient tolerates a regular diet for lunch MONET ALCANTARA MD October 11, 2019 11:38
[2019-10-11 12:08] LABS: SOURCE, BODY FLUID CREATININE PERITONEAL
[2019-10-11 14:00] VITALS: BP 135/81
== END 2019-10-11 15:59 | disposition home or self-care (01) | DRG 707 ==
LOC: M OR 06:02 → M MSPAV 14:38
PROVIDERS: ADMIT Urology; ATTEND Urology
PROC: 0TSC4ZZ Reposition Bladder Neck, Percutaneous Endoscopic Approach (ICD-10-PCS; 2019-10-08)
PROC: 8E0W4CZ Robotic Assisted Procedure of Trunk Region, Percutaneous Endoscopic Approach (ICD-10-PCS; 2019-10-08)
PROC: 0VT04ZZ Resection of Prostate, Percutaneous Endoscopic Approach (ICD-10-PCS; principal; 2019-10-08 07:30)
DX: C61 Malignant neoplasm of prostate (principal); K91.89 Other postprocedural complications and disorders of digestive system; Z11.59 Encounter for screening for other viral diseases; E78.01 Familial hypercholesterolemia; E03.9 Hypothyroidism, unspecified; E66.9 Obesity, unspecified; R73.03 Prediabetes; Z79.899 Other long term (current) drug therapy; Z88.0 Allergy status to penicillin; Z68.35 Body mass index [BMI] 35.0-35.9, adult

== ENCOUNTER → 2019-11-10 | Outpatient (CLI) | payer MEDICARE, BC ==
[~2019-11-10] MED LIST changes: +DOCU100C16 PO; +ERYT-52 PO; -GENTAMICIN 80 MG in IV 1 EA IV ONE; -HEPARIN SOD (PORCINE) 5000UNITS/ML VIAL (J1644 PER 1000UNITS) SQ ONE; -LR 1,000 ML IV ONE; +MULTCAP PO; +PERCOCET PO; -VANCOMYCIN HCL 1,000 MG, VIAL MATE ADAPTER 1 EACH in D5W 250 ML IV ONE
== END ==
LOC: M LAB 13:05
PROVIDERS: ATTEND Urology
DX: C61 Malignant neoplasm of prostate (principal)

== ENCOUNTER → 2019-11-10 | Outpatient (CLI) | payer MEDICARE, BC | LOC: M LAB 13:08 | PROVIDERS: ATTEND Surgery | DX: E89.0 Postprocedural hypothyroidism (principal) ==

== ENCOUNTER → 2020-02-12 | Outpatient (CLI) | payer MEDICARE, BC | LOC: M LAB 12:05 | PROVIDERS: ATTEND Urology | DX: C61 Malignant neoplasm of prostate (principal) ==

== ENCOUNTER → 2020-05-12 | Outpatient (CLI) | payer MEDICARE, BC | LOC: M LAB 12:55 | PROVIDERS: ATTEND Urology | DX: C61 Malignant neoplasm of prostate (principal) ==

== ENCOUNTER → 2020-08-12 | Outpatient (CLI) | payer MEDICARE, BC | LOC: M LAB 13:28 | PROVIDERS: ATTEND Urology | DX: C61 Malignant neoplasm of prostate (principal) ==

== ENCOUNTER → 2020-11-15 | Outpatient (CLI) | payer MEDICARE, BC ==
[2020-11-15 12:30] LABS: FREE T4 1.13 NG/DL (0.76-1.46); THYROID STIMULATING HORMONE 2.07 uIU/ML (0.358-3.740)
== END ==
LOC: M LAB 10:48
PROVIDERS: ATTEND Family Medicine
DX: E03.9 Hypothyroidism, unspecified (principal); C61 Malignant neoplasm of prostate

== ENCOUNTER → 2020-11-15 | Outpatient (CLI) | payer MEDICARE, BC | LOC: M LAB 10:46 | PROVIDERS: ATTEND Urology | DX: C61 Malignant neoplasm of prostate (principal) ==

== ENCOUNTER → 2020-12-07 | Outpatient (CLI) | payer MEDICARE, BC ==
--- NOTE | 2020-12-07 16:01 | RADONC.CN ---
Radiation Oncology Hx/Consult Radiation Oncology Consult Date of Service: Dec 07, 2020 Pt Identifier Lee Duke is a 60 year old male with biochemically persistent prostate cancer [id number] [place] 4+3=7 post-op PSA to 0.23. He is seen for consideration of salvage RT. Diagnosis/Treatment History Oncologic History Followed by Dr. Alcantara for elevated PSA TRUS biopsy 09/11/20 [place] 3+3=6 5/12 cores positive RALP 10/07/20 [place] 4+3=7 Margin + ISMA - SV - PSA trend: 2019 Pre-op 9.66 Post-op 11/10/19 0.18 02/12/20 0.05 05/12/20 0.06 08/12/20 0.13 11/15/20 0.23 IPSS 15 TERRY 1 Interval History Here with his supportive . He reports that he has some residual incontinence, wears 1 pad per day, minimal leakage, mostly with stress. He has no bowel problems. Sister had rectal cancer and suffered mightily with treatment effects, he would like to avoid these. He has complete ED since surgery. Past Medical History: Hypothyroidism HPL Past Surgical History: Left shoulder surgery x 3 Family History: Sister rectal cancer Social History: Never smoker Drinks 1 drink/day 1 day per week Allergies / Meds Allergies: Coded Allergies: Penicillins (Verified Allergy, Unknown, 10/08/19) unknown reaction, states as child Home Meds Reported Medications Atorvastatin Calcium (Atorvastatin Calcium) 20 Mg Tablet, 20 MG PO DAILY for 30 Days, #30 TAB 12/07/20 Levothyroxine Sodium (LEVOTHYROXINE SODIUM) 25 Mcg Tablet, 100 MCG PO DAILY, TAB 09/08/19 Discontinued Reported Medications Multivitamin (Multivitamins) 1 Each Capsule, 1 CAP PO DAILY, CAP 10/08/19 Erythromycin Base (Erythromycin) 500 Mg Tablet, 500 MG PE PO QID 10/08/19 Discontinued Scripts Docusate Sodium (Docusate Sodium) 100 Mg Capsule, 100 MG PO BID for 10 Days, #20 CAP Prov:MONET ALCANTARA MD 10/09/19 Oxycodone/Acetaminophen (Oxycodone-Acetaminophen 5-325) 1 Each Tablet, 1 TAB PO Q4H PRN for MODERATE/SEVERE PAIN (PS 5-10) MDD 6, #30 TAB Prov:MONET ALCANTARA MD 10/09/19 Review of Systems Constitutional: Denies: Chills, Fever, Night Sweats Eyes: Denies: Pain, Vision change HEENT: Denies: Head Aches, Dysphagia, Sore Throat Skin: Denies: Rash, Lesions, Bruising Pulmonary: Denies: Dyspnea, Cough Cardiovascular: Denies: Chest Pain, Palpitations, Edema Gastrointestinal: Denies: Nausea, Vomiting, Abdominal Pain, Diarrhea Genitourinary: Reports: Incontinence; Denies: Dysuria, Frequency, Retention Hematologic: Denies: Bruising, Petecchia, Enlarged Lymph Nodes Musculoskeletal: Denies: Neck pain, Back pain Neurological: Denies: Weakness, Numbness, Incoordination Psych: Reports: Mood Normal; Denies: Memory Issues, Thoughts of Self Harm Vital Signs Wt 290 lbs T 97.6 P 74 RR 18 BP 133/85 O2 95% Pain 0 Fatigue 0 General Exam: Positive: Alert, Cooperative, No Acute Distress Eye Exam: Positive: PERRLA, EOMI ENT EXAM: Positive: Atraumatic Neck Exam: Negative: Thyromegaly, Lymphadenopathy Chest Exam: Positive: Normal air movement Heart Exam: Positive: Rate Normal, Regular Rhythm Abdomen Exam: Positive: Soft; Negative: Tenderness, Mass Extremity Exam: Negative: Edema Skin Exam: Positive: Nl turgor and temperature; Negative: Rash Neuro Exam: Positive: Normal Gait, Normal Speech, Cranial Nerves 3-12 NL Psych Exam: Positive: Mental status NL, Mood NL, Memory Intact Diagnostic and Laboratory Diagnostic Review Radiologic images, relevant labs and pathology reports were personally reviewed and discussed with Mr. Duke. Assessment and Plan Impression Mr. Duke is a 60 year old male with biochemically persistent prostate cancer [id number] [place] 4+3=7 post-op PSA to 0.23. He is seen for consideration of salvage RT. Stage Prostate cancer stage IIC [id number] [place] 4+3=7 PSA 0.23 post-op Performance Status ECOG 0 Plan We had an extensive discussion with Mr. Duke regarding the diagnosis at hand and available therapeutic options. He had a positive margin on final pathology from his RALP and has had biochemical persistence over the past year since surgery. He has some residual incontinence which has not resolved since surgery as well as ED. He is mostly satisfied with his urinary function at this time. I discussed my recommendation for salvage RT to the prostate bed alone, on the basis of the positive margin and the results of the SPPORT trial which on subgroup analysis showed men with post-op PSA <0.34 at the time of salvage did not derive a significant benefit from inclusion of the pelvic lymph nodes in the treatment field. I discussed as well that per this study men of all PSA thresholds who received short course ADT seemed to benefit in terms of biochemic al control. On this basis as well as the [facility] nomogram which predicts an ~10% bPFS benefit to addition 6 months of ADT to salvage RT, I strongly recommended ADT. He agreed to proceed with salvage RT and short course ADT in the coming weeks. We also had an interesting discussion on the utility of PSMA PET-CT localization of any residual prostate cancer prior to salvage treatment. I candidly admitted that I have not had any experience or luck in getting access to PSMA for my patients in the biochemical failure post-primary RT setting, let alone up-front in advance of salvage RT. They would like to explore his eligibility for a PSMA PET in this setting and asked for a written order, I provided then with one, admitting that I do not think he will be able to get one unless he pays out of pocket, if at all contingent upon the emerging indications, which as I understand them are looking towards occult metastatic disease at this time, rather than in first-line local salvage scenarios. I will support their effort as I am able. We discussed the side effects of ADT and RT, including fatigue, hot flashes, weight gain, dysuria, frequency, and acute and late GI toxicity, respectively. Particularly, in his case, I explained that his incontinence is not likely to improve further in the wake of RT and in fact may become worse, at least acutely if not permanently. We discussed the logistics of receiving radiation therapy in detail including the need for a 1-time planning session. This can occur non-urgently in the comi ng weeks. After discussing the risks, benefits and alternatives to radiation therapy, Mr. Duke was amenable to pursuing radiotherapy. All questions were answered to the patient's satisfaction. We instructed the patient that if there were any questions,concerns or changes in clinical status in the interim to contact us. Recommendations Salvage RT 68.4 Gy in 38 fractions 6 months Lupron Casodex script at simulation Simulation in the coming weeks Patient to inquire about PSMA PET independently, will support with documentation as able Billing Statement Total time of [66] minutes was spent preparing for the visit [4], obtaining HPI [7], examining the patient [3], reviewing diagnostic tests [4], discussing management options [33], coordinating care [3], and writing this note [12]. KELVIN RINCON MD Dec 07, 2020 16:01
== END ==
LOC: M ONCR 12:46
PROVIDERS: ATTEND General Practice
DX: C61 Malignant neoplasm of prostate (principal)

== ENCOUNTER → 2021-07-18 | Outpatient (CLI) | payer MEDICARE, BC ==
[2021-07-18 13:07] LABS: PROSTATIC SPECIFIC AG MONITOR < 0.01 NG/ML (< 4.00); TESTOSTERONE 11 NG/DL (241-827)
== END ==
LOC: M LAB 12:02
DX: C61 Malignant neoplasm of prostate (principal)

== ENCOUNTER → 2021-10-10 | Outpatient (CLI) | payer MEDICARE, BC ==
[~2021-10-10] MED LIST changes: -ERYT-52 PO; +ERYT-88 PO
[2021-10-10 11:10] LABS: BASO % 0.9 % (0.0-1.0); EOS # 0.1 10^3/uL (0.0-0.5); EOS % 3.1 % (0.0-3.0); HEMATOCRIT 41.9 % (42.0-52.0); HEMOGLOBIN 14.6 g/dl (13.5-17.5); LYMPH # 0.5 10^3/uL (1.5-5.0); LYMPH % 11.6 % (24.0-44.0); MEAN CORPUSCULAR HEMOGLOBIN 31.2 pg (27.0-33.0); MEAN CORPUSCULAR HGB CONC 34.8 g/dl (32.0-36.5); MEAN CORPUSCULAR VOLUME 89.5 fl (80.0-96.0); MONO # 0.4 10^3/uL (0.0-0.8); MONO % 9.2 % (2.0-8.0); NEUTROPHILS # 3.4 10^3/uL (1.5-8.5); NEUTROPHILS % 74.8 % (36.0-66.0); PLATELET COUNT, AUTOMATED 189 10^3/uL (150-450); RED BLOOD COUNT 4.68 10^6/uL (4.30-6.10); WHITE BLOOD COUNT 4.6 10^3/uL (4.0-10.0)
[2021-10-10 11:47] LABS: ALBUMIN 3.8 GM/DL (3.2-5.2); ALT/SGPT 49 U/L (12-78); BILIRUBIN,TOTAL 0.5 MG/DL (0.2-1.0); BLOOD UREA NITROGEN 19 MG/DL (7-18); CARBON DIOXIDE LEVEL 25 MEQ/L (21-32); CHLORIDE LEVEL 107 MEQ/L (98-107); CHOLESTEROL LEVEL 121 MG/DL (<200); CHOLESTEROL RISK RATIO 3.025 (<5); CREATININE FOR GFR 0.98 MG/DL (0.70-1.30); GLOMERULAR FILTRATION RATE > 60.0 (>49); GLUCOSE, FASTING 113 MG/DL (70-100); HDL CHOLESTEROL 40 MG/DL (>40); LDL CHOLESTEROL 53 MG/DL (<100); NON-HDL-C 81 MG/DL; POTASSIUM SERUM 4.1 MEQ/L (3.5-5.1); SODIUM LEVEL 139 MEQ/L (136-145); TOTAL PROTEIN 7.1 GM/DL (6.4-8.2); TRIGLYCERIDES LEVEL 142 MG/DL (<150)
== END ==
LOC: M LAB 09:39
PROVIDERS: ATTEND Family Medicine
DX: E88.81 Metabolic syndrome and other insulin resistance (principal); E66.9 Obesity, unspecified; R73.03 Prediabetes; E78.00 Pure hypercholesterolemia, unspecified

== ENCOUNTER → 2021-10-10 | Outpatient (CLI) | payer MEDICARE, BC ==
[2021-10-10 11:39] LABS: RHEUMATOID FACTOR QUANT < 10.0 IU/ML (<15.0); TOTAL PROTEIN 7.2 GM/DL (6.4-8.2)
[2021-10-10 12:09] LABS: HEMOGLOBIN A1c 6.2 %
[2021-10-11 13:51] LABS: ALBUMIN 4.37 GM/DL (3.29-5.55); ALBUMIN % 60.7 % (55.8-66.1); ALPHA-1-GLOBULIN % 4.1 % (2.9-4.9); ALPHA-2-GLOBULINS % 10.8 % (7.1-11.8); BETA-1-GLOBULINS % 5.8 % (4.7-7.2); BETA-2-GLOBULINS % 4.7 % (3.2-6.5); GAMMA GLOBULIN % 13.9 % (11.1-18.8)
[2021-10-11 13:52] LABS: ALPHA-2-GLOBULINS 0.78 GM/DL (0.42-0.99); BETA-1-GLOBULINS 0.42 GM/DL (0.28-0.60); BETA-2-GLOBULINS 0.34 GM/DL (0.19-0.55)
[2021-10-26 10:31] LABS: ANTINUCLEAR ANTIBODIES DIRECT Negative (Negative); CERULOPLASMIN 26.8 mg/dL (16.0-31.0); COPPER PLASMA 109 ug/dL (69-132); LEAD BLOOD ADULT 3 ug/dL (0-4); MERCURY LEVEL <1.0 ug/L (0.0-14.9); VITAMIN B6,PYRIDOXAL PHOSPHATE 19.3 ug/L (3.4-65.2); VITAMIN E(ALPHA TOCOPHEROL) 5.6 mg/L (9.0-29.0); VITAMIN E(GAMMA TOCOPHEROL) 1.1 mg/L (0.5-4.9)
== END ==
LOC: M LAB 09:50
PROVIDERS: ATTEND Psychiatry & Neurology Neurology
DX: E11.40 Type 2 diabetes mellitus with diabetic neuropathy, unspecified (principal); R97.20 Elevated prostate specific antigen [PSA]

== ENCOUNTER → 2021-10-10 | Outpatient (CLI) | payer MEDICARE, BC | LOC: M LAB 09:45 | PROVIDERS: ATTEND Urology | DX: C61 Malignant neoplasm of prostate (principal) ==

== ENCOUNTER → 2022-01-16 | Outpatient (CLI) | payer MEDICARE, BC | LOC: M LAB 13:05 | PROVIDERS: ATTEND Urology | DX: C61 Malignant neoplasm of prostate (principal) ==

== ENCOUNTER → 2022-05-04 | Outpatient (CLI) | payer MEDICARE, BC | LOC: M LAB 09:18 | PROVIDERS: ATTEND Urology | DX: C61 Malignant neoplasm of prostate (principal) ==

== ENCOUNTER → 2022-07-24 | Outpatient (CLI) | payer MEDICARE, BC | LOC: M LAB 11:21 | PROVIDERS: ATTEND Urology | DX: C61 Malignant neoplasm of prostate (principal) ==

== ENCOUNTER → 2022-07-24 | Outpatient (CLI) | payer MEDICARE, BC | LOC: M LAB 11:24 | PROVIDERS: ATTEND Psychiatry & Neurology Neurology | DX: G62.9 Polyneuropathy, unspecified (principal); E53.8 Deficiency of other specified B group vitamins; D47.2 Monoclonal gammopathy; C61 Malignant neoplasm of prostate ==

== ENCOUNTER → 2022-12-18 | Outpatient (REF) | payer MEDICARE, BC | LOC: M SMT 15:15 | PROVIDERS: ATTEND Urology | DX: R31.0 Gross hematuria (principal) ==

== ENCOUNTER → 2023-01-25 | Outpatient (CLI) | payer MEDICARE, BC | LOC: M LAB 10:33 | PROVIDERS: ATTEND Urology | DX: C61 Malignant neoplasm of prostate (principal) ==

== ENCOUNTER → 2023-08-03 | Outpatient (CLI) | payer MEDICARE | LOC: M LAB 11:47 | PROVIDERS: ATTEND Urology | DX: C61 Malignant neoplasm of prostate (principal) ==

== ENCOUNTER → 2024-01-25 | Outpatient (CLI) | payer MEDICARE | LOC: M LAB 08:14 | PROVIDERS: ATTEND Urology | DX: C61 Malignant neoplasm of prostate (principal) ==